=== PATIENT | male | born 1980 | race Hispanic/Latino ===

== ENCOUNTER 2017-06-19 20:33 | Emergency (ER) | payer OTHER ==
[2017-06-19 20:49] VITALS: BP 114/76; PULSE 74; RESP 18; TEMP 98.1; O2SAT 96
--- NOTE | 2017-06-19 21:57 | ED PDOC ---
HPI: Skin/Bite Injury Time Seen by Provider: 06/19/17 20:59 Chief Complaint (Nursing): Bite Chief Complaint (Provider): Insect Bite History Per: Patient, Other (Girlfriend) History/Exam Limitations: no limitations Onset/Duration Of Symptoms: Days Additional Complaint(s): 37 year old male presents to the ED after his girlfriend noticed an insect bite on his left calf. Patient does not know how long it had been since he was bitten. Patient states he believes it has been there since yesterday while he was outside. Denies fever, pain, rashes, arthralgia, vomiting, headache, and dizziness. PMD: None Past Medical History Reviewed: Historical Data, Nursing Documentation, Vital Signs Vital Signs: Last Vital Signs Temp 98.1 F 06/19/17 20:45 Pulse 74 06/19/17 20:45 Resp 18 06/19/17 20:45 BP 114/76 06/19/17 20:45 Pulse Ox 96 06/19/17 22:02 - Medical History PMH: Denies: HIV, Chronic Kidney Disease - Surgical History Surgical History: No Surg Hx - Family History Family History: States: Unknown Family Hx - Home Medications Home Medications: Ambulatory Orders Medication Instructions Recorded Clindamycin [Cleocin] 300 mg PO Q6 #0 cap 11/08/15 Doxycycline Hyclate 100 mg PO BID #28 capsule 06/19/17 - Allergies Allergies/Adverse Reactions: Allergies Allergy/AdvReac Type Severity Reaction Status Date / Time Penicillins Allergy RASH Verified 11/05/15 20:53 Review of Systems ROS Statement: Except As Marked, All Systems Reviewed And Found Negative Skin: Positive for: Other (animal/bug bite appearance on left calf ) Physical Exam - Reviewed Nursing Documentation Reviewed: Yes Vital Signs Reviewed: Yes - Physical Exam Appears: Positive for: Non-toxic, No Acute Distress Head Exam: Positive for: ATRAUMATIC, NORMOCEPHALIC Skin: Positive for: Normal Color, Warm, DRY Eye Exam: Positive for: EOMI, Normal appearance, PERRL ENT: Positive for: Normal ENT Inspection Neck: Positive for: Normal, Painless ROM, Supple Cardiovascular/Chest: Positive for: Regular Rate, Rhythm. Negative for: Murmur Respiratory: Positive for: Normal Breath Sounds. Negative for: Respiratory Distress Gastrointestinal/Abdominal: Positive for: Normal Exam, Soft. Negative for: Tenderness Back: Positive for: Normal Inspection. Negative for: L CVA Tenderness, R CVA Tenderness, Vertebral Tenderness Extremity: Positive for: Normal ROM, Other (insect embedded in skin, appearing to look like a tick bite.). Negative for: Pedal Edema - ECG O2 Sat by Pulse Oximetry: 96 (RA) Pulse Ox Interpretation: Normal Medical Decision Making Medical Decision Making: Time: 2141 Plan: -- Lyme Disease, EIA w/ RFL WB -- Lyme IGG -- Insect embedded in skin, appearing to look like a tick bite. Provider removed bug intact using tweezers and covered area with vacitracin. -- Awaiting lyme disease titers. Scribe Attestation: Documented by Leroy Chiang, acting as a scribe for Dr. Rosangela Mcallister MD. Provider Scribe Attestation: All medical record entries made by the Scribe were at my direction and personally dictated by me. I have reviewed the chart and agree that the record accurately reflects my personal performance of the history, physical exam, medical decision making, and the department course for this patient. I have also personally directed, reviewed, and agree with the discharge instructions and disposition. Disposition - Clinical Impression Clinical Impression: Insect bite - Disposition Referrals: [facility] [Outside] [facility] [Outside] Condition: IMPROVED Additional Instructions: follow up with your primary doctor within one week return to the ED with any worsening or concerning symptoms Prescriptions: Doxycycline Hyclate 100 mg PO BID #28 capsule Instructions: Insect Bites and Stings (DC) Forms: Qloud (Setswana)
== END 2017-06-19 22:22 | disposition home or self-care (01) ==
LOC: H.ER 20:33
DX: S80.862A Insect bite (nonvenomous), left lower leg, initial encounter (principal); W57.XXXA Bitten or stung by nonvenomous insect and other nonvenomous arthropods, initial encounter; Y92.89 Other specified places as the place of occurrence of the external cause; Z88.0 Allergy status to penicillin